=== PATIENT | female | born 1980 | race Hispanic/Latino ===

== ENCOUNTER 2020-12-30 03:14 | Emergency (ER) | payer OTHER ==
[2020-12-30 05:48] LABS: Urine Blood Trace-intact (Negative); Urine Glucose Negative (Negative); Urine Protein 1+ (Negative); Urine Specific Gravity >=1.030 (1.005-1.030); Urine pH 5.5 (5.0-7.0)
[2020-12-30] MEDS ORDERED: ONDANSETRON 4 MG/2 ML VIAL ONE (06:51)
[2020-12-30] MEDS ORDERED: FENTANYL CITR 100 MCG/2 ML ONE (06:51)
[2020-12-30] MEDS ORDERED: LORazepam 2 MG/ML VIAL ONE (07:51)
--- NOTE | 2020-12-30 08:33 | RAD REPORT ---
EXAM DESCRIPTION: MRI - Thoracic Spine Wo Contr - 12/30/2020 8:09 am CLINICAL HISTORY: Fall, midthoracic pain COMPARISON: None TECHNIQUE: Sagittal T1 weighted, T2 weighted and T2 STIR weighted sequences were obtained. Axial T2 weighted images were obtained through each disc level. FINDINGS: Thoracic vertebrae are normal in height and alignment. No marrow edema or marrow replacing process. No paraspinal soft tissue mass identifiable. No paraspinal muscle abnormality identifiable. No disc herniation is present. Mild disc bulge changes are present midthoracic spine probably T6-7 l evel. There is contact but no flattening of the cord. No other significant central canal finding. Tho racic cord shows no focal narrowing, expansion or signal abnormality. No foraminal abnormality seen. IMPRESSION: No fracture or acute vertebral body finding. Mild T6-7 disc bulge is present. This contacts but does not flatten the cord. No central spinal stenosis or foraminal stenosis. No cord abnormality.
--- NOTE | 2020-12-30 08:36 | RAD REPORT ---
EXAM DESCRIPTION: MRI - Lumbar Spine Ronnell Lin - 12/30/2020 8:21 am CLINICAL HISTORY: PAIN, fall COMPARISON: No comparisons TECHNIQUE: Sagittal T1-weighted, T2-weighted and T2-STIR weighted sequences were obtained. Axial T1 -weighted and heavily T2-weighted sequenceswere obtained through the lumbar disc levels. FINDINGS: Lumbar bodies are normal in height and alignment. No suspicious marrow signal. No paraspi nal masses. Conus is normal with no clumping or thickening of the cauda equina. T12-L1 level: No significant findings. L1-2 level: No disc, canal or foramen abnormality. Facet joint degenerative change is minimal. L2-3 level: No disc, canal or foramen abnormality. Facet joint degenerative change is minimal. L3-4 level: No disc, canal or foramen abnormality. Facet joint degenerative change is minimal L4-5 level: Very minimal disc bulge changes are present. No canal or foramen narrowing. Mild facet kristel int degenerative change. L5-S1 level: Mild disc bulge without herniation. There is contact but no flattening of the thecal sac . No spinal stenosis or foraminal encroachment. Moderate for age facet joint degenerative changes are present. IMPRESSION: No disc herniation, significant degree of disc bulge, canal stenosis or foraminal stenos is. Facet joint degenerative changes are present. Changes are moderate for age at the L5-S1 level, mild o r minimal at the remaining levels.
--- NOTE | 2020-12-30 08:52 | EDPHYS ---
Physician Documentation [facility] Name: Yris Phillips Age: 40 yrs Sex: Female : 1980 Arrival Date: 12/30/2020 Time: 03:16 Bed 14 Private MD: ED Physician Macario Armendariz HPI: 12/30 05:27 This 40 yrs old Female presents to ER via Ambulatory with complaints of Back pkl Pain. 05:28 The patient presents with pain that is acute. The symptoms are located in the mid back. pkl Onset: The symptoms/episode began/occurred 1 week(s) ago. The pain does not radiate. Associated signs and symptoms: The patient has no apparent associated signs or symptoms. 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 - Social history:: Smoking status: Patient denies any tobacco usage or history of. ROS: 05:28 Eyes: Negative for injury, pain, redness, and discharge, ENT: Negative for injury, pkl pain, and discharge, Neck: Negative for injury, pain, and swelling, Cardiovascular: Negative for chest pain, palpitations, and edema, Respiratory: Negative for shortness of breath, cough, wheezing, and pleuritic chest pain, Abdomen/GI: Negative for abdominal pain, nausea, vomiting, diarrhea, and constipation. 05:28 Back: Positive for pain with movement, of the mid back. 05:28 : Negative for urinary symptoms. 05:28 MS/extremity: Negative for acute changes. 05:28 Skin: Negative for rash. 05:28 Neuro: Negative for altered mental status, loss of consciousness, numbness. Exam: 05:31 Head/Face: Normocephalic, atraumatic. Eyes: Pupils equal round and reactive to light, pkl extra-ocular motions intact. Lids and lashes normal. Conjunctiva and sclera are non-icteric and not injected. Cornea within normal limits. Periorbital areas with no swelling, redness, or edema. ENT: Nares patent. No nasal discharge, no septal abnormalities noted. Tympanic membranes are normal and external auditory canals are clear. Oropharynx with no redness, swelling, or masses, exudates, or evidence of obstruction, uvula midline. Mucous membranes moist. Neck: Trachea midline, no thyromegaly or masses palpated, and no cervical lymphadenopathy. Supple, full range of motion without nuchal rigidity, or vertebral point tenderness. No Meningismus. Chest/axilla: Normal chest wall appearance and motion. Nontender with no deformity. No lesions are appreciated. Cardiovascular: Regular rate and rhythm with a normal S1 and S2. No gallops, murmurs, or rubs. Normal PMI, no JVD. No pulse deficits. Respiratory: Lungs have equal breath sounds bilaterally, clear to auscultation and percussion. No rales, rhonchi or wheezes noted. No increased work of breathing, no retractions or nasal flaring. Abdomen/GI: Soft, non-tender, with normal bowel sounds. No distension or tympany. No guarding or rebound. No evidence of tenderness throughout. 05:31 Back: pain, that is moderate, of the mid back. 05:31 : Exam negative for acute changes. 05:31 Musculoskeletal/extremity: Exam is negative for acute changes. 05:31 Skin: Exam negative for rash. 05:31 Neuro: Exam negative for acute changes. Vital Signs: 03:38 BP 115 / 49; Pulse 81; Resp 18 S; Temp 98.4(O); Pulse Ox 99% ; Weight 107.5 kg (R); bb Height 5 ft. 4 in. (162.56 cm) (R); Pain 10/10; 05:47 BP 111 / 56; Pulse 68; Resp 18; Pulse Ox 98% on R/A; ak2 06:49 BP 129 / 74; Pulse 71; Resp 16 S; Pulse Ox 100% on R/A; Pain 4/10; bb 08:40 BP 133 / 84; Pulse 82; Resp 17; Pulse Ox 95% ; bp 03:38 Body Mass Index 40.68 (107.50 kg, 162.56 cm) bb MDM: 05:14 Patient medically screened. pkl 05:31 Data reviewed: vital signs, nurses notes. pkl 07:00 Differential diagnosis: ruptured disc, Ureterolithiasis cauda equina, spinal stenosis, cp bulging disc. 08:50 Counseling: I had a detailed discussion with the patient and/or guardian regarding: the cp historical points, exam findings, and any diagnostic results supporting the discharge/admit diagnosis, radiology results, the need for outpatient follow up, a family practitioner, to return to the emergency department if symptoms worsen or persist or if there are any questions or concerns that arise at home. 08:50 Response to treatment: the patient's symptoms have markedly improved after treatment, cp VSS. Pain markedly improved. Will discharge to home for continued monitoring. MRI of thoracic and lumbar spine negative for acute findings. 08:51 Patient medically screened. cp 08:56 ED course: no results on inquiry of [place] prescription monitor program website. cp 12/30 05:48 Order name: Urine Dipstick-Ancillary; Complete Time: 08:41 EDMS 12/30 08:41 Interpretation: Normal except: UBLD Trace-intact; UPROT 1+. cp 12/30 05:49 Order name: Urine --Ancillary (enter results); Complete Time: 09:46 ds4 12/30 09:47 Interpretation: Abnormal: USPGRP >1.030. cp 12/30 07:08 Order name: MRI Lumbar Spine wo Con: change to thoracic spine; Complete Time: 08:41 cp 12/30 08:43 Interpretation: Report reviewed. cp 12/30 07:38 Order name: Thoracic Spine Wo Contr; Complete Time: 08:41 EDMS 12/30 06:25 Order name: IV; Complete Time: 06:47 cp Administered Medications: 06:28 Drug: Zofran (Ondansetron) 4 mg Route: IVP; Site: right hand; bb 07:49 Follow up: Response: No adverse reaction bp 06:30 Drug: fentaNYL (PF) 25 mcg Route: IVP; Site: right hand; bb 07:48 Follow up: Response: Pain is decreased bp 07:30 Drug: Ativan (LORazepam) 1 mg Route: IVP; Site: right antecubital; bp 07:49 Follow up: Response: Anxiety decreased bp Disposition Summary: 12/30/20 08:51 Discharge Ordered Location: Home cp Problem: new cp Symptoms: have improved cp Condition: Stable cp Diagnosis - Dorsalgia, unspecified cp Followup: cp - With: Private Physician - When: 2 - 3 days - Reason: Recheck today's complaints Discharge Instructions: - Discharge Summary Sheet cp - Acute Back Pain, Adult cp Forms: - Medication Reconciliation Form cp - Thank You Letter cp - Antibiotic Education cp - Prescription Opioid Use cp Prescriptions: - Cyclobenzaprine 10 mg Oral Tablet - take 1 tablet by ORAL route every 8 hours As needed; 20 tablet; Refills: 0, cp Product Selection Permitted - Medrol (Tyrese) 4 mg Oral Tablets, Dose Pack - take 1 tablet by ORAL route as directed - follow package instructions; 1 cp packet; Refills: 0, Product Selection Permitted - Tramadol 50 mg Oral Tablet - take 1 tablet by ORAL route every 8 hours as needed; 12 tablet; Refills: 0, cp Product Selection Permitted Addendum: 01/01/2021 19:06 Co-signature as Attending Physician, Macario kwong Signatures: Dispatcher [employer] EDKS Macario Armendariz MD MD pkl Brigette Aleman, RN RN bb Shaggy Bello PA PA Dc Clements, RN RN bp Corrections: (The following items were deleted from the chart) 12/30 05:30 05:27 The patient presents with pain that is acute, pkl pkl 07:38 06:26 Lumbar Spine Wo Con+MRI.RAD.BRZ ordered. [facility] 18:05 08:55 Counseling: I had a detailed discussion with the patient and/or guardian cp regarding: the historical points, exam findings, and any diagnostic results supporting the discharge/admit diagnosis, radiology results, the need for outpatient follow up, a family practitioner, to return to the emergency department if symptoms worsen or persist or if there are any questions or concerns that arise at home, cp
--- NOTE | 2020-12-30 08:52 | ER ---
Nurse's Notes [facility] Name: Yris Phillips Age: 40 yrs Sex: Female : 1980 Arrival Date: 12/30/2020 Time: 03:16 Bed 14 Private MD: Diagnosis: Dorsalgia, unspecified Presentation: 12/30 03:38 Chief complaint: Patient states: she has been having mid-back pain all week but today bb she sneezed and the pain got significantly worse, is worse with movement, she has been unable to sleep or get comfortable. Coronavirus screen: At this time, the client does not indicate any symptoms associated with coronavirus-19. Ebola Screen: No symptoms or risks identified at this time. Initial Sepsis Screen: Does the patient meet any 2 criteria? No. Patient's initial sepsis screen is negative. Does the patient have a suspected source of infection? No. Patient's initial sepsis screen is negative. Risk Assessment: Do you want to hurt yourself or someone else? Patient reports no desire to harm self or others. Onset of symptoms was December 30, 2020. 03:38 Method Of Arrival: Ambulatory bb 03:38 Acuity: REYNOLD 4 bb Triage Assessment: 03:40 General: Appears in no apparent distress. uncomfortable, Behavior is calm, cooperative. bb Pain: Complains of pain in back. Neuro: Level of Consciousness is awake, alert, obeys commands, Oriented to person, place, time, situation. Cardiovascular: Capillary refill < 3 seconds Patient's skin is warm and dry. Respiratory: Respiratory effort is even, unlabored. GI: No signs and/or symptoms were reported involving the gastrointestinal system. Derm: Skin is dry, Skin is normal, Skin temperature is warm. Musculoskeletal: Circulation, motion, and sensation intact. 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 - Social history:: Smoking status: Patient denies any tobacco usage or history of. Screenin:32 Abuse screen: Denies threats or abuse. Nutritional screening: No deficits noted. bb Tuberculosis screening: No symptoms or risk factors identified. Fall Risk None identified. Assessment: 04:32 Reassessment: No changes from previously documented assessment. Patient is alert, bb oriented x 3, equal unlabored respirations, skin warm/dry/pink. see triage assessment. 06:20 Reassessment: Patient is alert, oriented x 3, equal unlabored respirations, skin bb warm/dry/pink. pt awaiting MRI. 07:02 Reassessment: RECD REPORT FROM WENDY BRAND. 40YO HF P/W BACK PAIN, EXACERBATED BY COUGH AND bp MOVEMENT. MRI PENDING. 07:13 Reassessment: PT TO MRI. bp 07:30 Reassessment: PT MEDICATED FOR ANXIETY IN MRI. bp 08:40 Reassessment: PT RETURNED FROM MRI. bp Vital Signs: 03:38 BP 115 / 49; Pulse 81; Resp 18 S; Temp 98.4(O); Pulse Ox 99% ; Weight 107.5 kg (R); bb Height 5 ft. 4 in. (162.56 cm) (R); Pain 10/10; 05:47 BP 111 / 56; Pulse 68; Resp 18; Pulse Ox 98% on R/A; ak2 06:49 BP 129 / 74; Pulse 71; Resp 16 S; Pulse Ox 100% on R/A; Pain 4/10; bb 08:40 BP 133 / 84; Pulse 82; Resp 17; Pulse Ox 95% ; bp 03:38 Body Mass Index 40.68 (107.50 kg, 162.56 cm) bb ED Course: 03:16 Patient arrived in ED. wm 03:40 Triage completed. bb 03:40 Arm band placed on Patient placed in waiting room, Patient notified of wait time. bb 04:32 Patient has correct armband on for positive identification. Bed in low position. Call bb light in reach. 05:14 Macario Armendariz MD is Attending Physician. pkl 05:26 Macario Armendariz MD is Attending Physician. pkl 06:18 Shaggy Bello PA is PHCP. cp 06:18 Macario Armendariz MD is Attending Physician. cp 06:20 Inserted saline lock: 20 gauge in right hand, using aseptic technique. bb 06:26 Brigette Aleman, SUNDAY is Primary Nurse. bb 06:59 Primary Nurse role handed off by Brigette Aleman, SUNDAY bp 06:59 Dc [place], SUNDAY is Primary Nurse. bp 08:09 MRI Lumbar Spine wo Con: change to thoracic spine In Process Unspecified. EDMS 08:09 Thoracic Spine Wo Contr In Process Unspecified. EDMS Administered Medications: 06:28 Drug: Zofran (Ondansetron) 4 mg Route: IVP; Site: right hand; bb 07:49 Follow up: Response: No adverse reaction bp 06:30 Drug: fentaNYL (PF) 25 mcg Route: IVP; Site: right hand; bb 07:48 Follow up: Response: Pain is decreased bp 07:30 Drug: Ativan (LORazepam) 1 mg Route: IVP; Site: right antecubital; bp 07:49 Follow up: Response: Anxiety decreased bp Outcome: 08:51 Discharge ordered by . ga 09:53 Patient left the ED. iw Signatures: Dispatcher [employer] EDMS Macario Armendariz MD MD pkl Ballard, Brenda, RN RN bb Citlaly Nye, RN RN iw Shaggy Bello, PA PA Dc Clements, RN RN Erasto More arSandra Marquez
[2020-12-30 09:45] LABS: Urine Specific Gravity/Preg >1.030 (1.005-1.030)
[2020-12-30 10:09] VITALS: TEMP 98.4
[2020-12-30 10:14] VITALS: BP 133/84; O2SAT 95
== END 2020-12-30 09:53 | disposition home or self-care (01) ==
LOC: ER 03:14
DX: M54.9 Dorsalgia, unspecified (principal)
CPT/HCPCS: 81025; 81003; 72146; 72148; J3010; J2405